=== PATIENT | male | born 1985 | race Caucasian/White ===

== ENCOUNTER 2023-04-13 04:04 | Emergency (ER) | payer SELFPAY ==
[~2023-04-13] VITALS: Ht 190.5 cm; Wt 107.0 kg
[~2023-04-13 04:04] MED LIST: LISI-711
[2023-04-13 04:37] LABS: Basophils # (auto) 0.1 10 ^3/uL (0-0.2); Basophils % (auto) 0.7 % (0.0-2.0); Eosinophils # (auto) 0.2 10 ^3/uL (0-0.8); Eosinophils % (auto) 2.4 % (0.0-7.0); Hematocrit 39.6 % (41.0-53.0); Hemoglobin 13.1 g/dL (13.5-17.5); Lymphocytes # (auto) 2.3 10 ^3/uL (0.4-5.4); Lymphocytes % (auto) 23.6 % (10.0-50.0); Mean Corpuscular Hemoglobin 29.9 pg (28.0-32.0); Mean Corpuscular Volume 90.4 fL (80.0-100.0); Monocytes # (auto) 1.2 10 ^3/uL (0-1.3); Monocytes % (auto) 12.5 % (0.0-12.0); Neutrophils # (auto) 5.9 10 ^3/uL (1.6-8.6); Neutrophils % (auto) 60.8 % (37.0-80.0); Nucleated Red Blood Cells % 0.1 %; Red Blood Cells 4.39 10^6/uL (4.5-5.90); Red Cell Distribution Width 13.7 % (11.8-14.3); White Blood Cell 9.7 10^3/uL (4.4-10.8)
[2023-04-13 04:52] LABS: Alanine Aminotransferase 93 U/L (7-40); Alkaline Phosphatase 81 U/L (46-116); Anion Gap 5 (5-15); Aspartate Aminotransferase 32 U/L (13-40); BUN/Creatinine Ratio 11.1 (10.0-20.0); Bilirubin, Total 0.4 mg/dL (0.2-1.0); Blood Urea Nitrogen 10 mg/dL (9-23); Carbon Dioxide 28 mmol/L (20-30); Chloride 106 mmol/L (98-107); Glucose 99 mg/dL (74-106); Potassium 4.1 mmol/L (3.5-5.1); Sodium 139 mmol/L (136-145); Total Protein 6.5 g/dL (5.7-8.2)
[2023-04-13 05:00] VITALS: BP 108/66; PULSE 106; RESP 16; O2SAT 98
== END 2023-04-13 05:54 | disposition left against medical advice (07) ==
LOC: ER 04:04
DX: L03.116 Cellulitis of left lower limb (principal); L03.115 Cellulitis of right lower limb
CPT/HCPCS: 36415; 80053; 83605; 85025; 87040; 87077; 87186; 87205; 93005

== ENCOUNTER 2024-03-14 10:38 | Inpatient (IN) | payer MEDICAID, OTHER ==
[~2024-03-14] VITALS: Ht 190.5 cm; Wt 92.0 kg
[2024-03-14 11:11] LABS: Basophils # (auto) 0 10 ^3/uL (0-0.2); Basophils % (auto) 0.4 % (0.0-2.0); Eosinophils # (auto) 0.1 10 ^3/uL (0-0.8); Eosinophils % (auto) 1.6 % (0.0-7.0); Hematocrit 40.6 % (41.0-53.0); Hemoglobin 14.1 g/dL (13.5-17.5); Lymphocytes # (auto) 2.5 10 ^3/uL (0.4-5.4); Lymphocytes % (auto) 27.1 % (10.0-50.0); Mean Corpuscular Hemoglobin 31.1 pg (28.0-32.0); Mean Corpuscular Hgb Conc. 34.7 g/dL (32.0-36.0); Mean Corpuscular Volume 89.7 fL (80.0-100.0); Monocytes % (auto) 10.5 % (0.0-12.0); Neutrophils # (auto) 5.6 10 ^3/uL (1.6-8.6); Neutrophils % (auto) 60.4 % (37.0-80.0); Platelet Count (auto) 304 10^3/uL (140-450); Red Blood Cells 4.53 10^6/uL (4.5-5.90); Red Cell Distribution Width 14.3 % (11.8-14.3); White Blood Cell 9.3 10^3/uL (4.4-10.8)
[2024-03-14 11:28] LABS: Alanine Aminotransferase 20 U/L (7-40); Albumin 4.2 g/dL (3.2-4.8); Alkaline Phosphatase 52 U/L (46-116); Anion Gap 3 (5-15); Aspartate Aminotransferase 10 U/L (13-40); BUN/Creatinine Ratio 22.4 (10.0-20.0); Bilirubin, Total 0.5 mg/dL (0.2-1.0); Blood Urea Nitrogen 17 mg/dL (9-23); Calcium 9.5 mg/dL (8.7-10.4); Carbon Dioxide 27 mmol/L (20-30); Chloride 108 mmol/L (98-107); Glucose 83 mg/dL (74-106); Potassium 4.1 mmol/L (3.5-5.1); Sodium 138 mmol/L (136-145); Total Protein 6.7 g/dL (5.7-8.2)
[2024-03-14] MEDS ORDERED: ACETAMINOPHEN 325 MG TAB PO PRN (16:15)
[2024-03-14] MEDS ORDERED: ONDANSETRON HCL 4 MG/2 ML VIAL IV PRN (16:15)
[2024-03-14] MEDS ORDERED: NITROGLYCERIN 0.4 MG SL TAB SL PRN ×2 (16:15)
[2024-03-14] MEDS: ENOXAPARIN SOD 100 MG/1 ML SYRINGE SC SCH (20:43)
[2024-03-14 21:22] VITALS: BP 101/59; PULSE 62; RESP 17; TEMP 98.5; O2SAT 98
[2024-03-14 21:58] VITALS: BP 101/59; PULSE 62; RESP 17; TEMP 98.5; O2SAT 98
[2024-03-14] MEDS: ATORVASTATIN 20 MG TAB PO SCH (22:22)
[2024-03-15 00:46] LABS: INR 1.09 (0.9-1.15); Prothrombin Time 11.5 sec (9.3-11.8)
[2024-03-15] MEDS ORDERED: TRAZ-228 PO (02:24)
[2024-03-15] MEDS ORDERED: ARIP20TA4 PO (02:24)
[2024-03-15 05:00] VITALS: BP 99/58; PULSE 72; RESP 18; TEMP 98.2; O2SAT 96
[2024-03-15 06:33] LABS: Basophils # (auto) 0 10 ^3/uL (0-0.2); Eosinophils # (auto) 0.1 10 ^3/uL (0-0.8); Lymphocytes # (auto) 2.3 10 ^3/uL (0.4-5.4); Nucleated Red Blood Cells % 0.1 %
[2024-03-15 06:36] LABS: Basophils % (auto) 0.6 % (0.0-2.0); Eosinophils % (auto) 1.4 % (0.0-7.0); Hematocrit 39.7 % (41.0-53.0); Hemoglobin 13.7 g/dL (13.5-17.5); Lymphocytes % (auto) 30.8 % (10.0-50.0); Mean Corpuscular Hemoglobin 31.2 pg (28.0-32.0); Mean Corpuscular Hgb Conc. 34.5 g/dL (32.0-36.0); Mean Corpuscular Volume 90.3 fL (80.0-100.0); Monocytes # (auto) 0.8 10 ^3/uL (0-1.3); Monocytes % (auto) 11.2 % (0.0-12.0); Neutrophils # (auto) 4.3 10 ^3/uL (1.6-8.6); Platelet Count (auto) 298 10^3/uL (140-450); White Blood Cell 7.6 10^3/uL (4.4-10.8)
[2024-03-15 06:51] LABS: Alanine Aminotransferase 19 U/L (7-40); Albumin 3.9 g/dL (3.2-4.8); Alkaline Phosphatase 49 U/L (46-116); Anion Gap 2 (5-15); Aspartate Aminotransferase 8 U/L (13-40); Blood Urea Nitrogen 12 mg/dL (9-23); Calcium 9.5 mg/dL (8.7-10.4); Carbon Dioxide 28 mmol/L (20-30); Chloride 110 mmol/L (98-107); Cholesterol 117 mg/dL (< 200); Glucose 87 mg/dL (74-106); HDL Cholesterol 36 mg/dL (40-59); LDL Cholesterol 69 mg/dL (< 100); Sodium 140 mmol/L (136-145); Triglycerides 51 mg/dL (< 150)
[2024-03-15 06:52] LABS: Bilirubin, Total 0.9 mg/dL (0.2-1.0); Total Protein 6.2 g/dL (5.7-8.2)
[2024-03-15 08:00] VITALS: PULSE 62; PULSE 65; RESP 20; O2SAT 97
[2024-03-15 08:07] LABS: Magnesium 2.2 mg/dL (1.6-2.6)
[2024-03-15 08:09] LABS: Phosphorus 3.1 mg/dL (2.4-5.1)
[2024-03-15 09:00] VITALS: BP 105/47; PULSE 62; RESP 20; TEMP 97.9; O2SAT 97
[2024-03-15] MEDS ORDERED: IOHEXOL 350 MG/ML 100ML IJ ONE (10:06)
[2024-03-15] MEDS: ASPirin 81 mg TAB PO SCH (10:11)
[2024-03-15] MEDS: DOCUSATE SOD 100 MG CAP PO SCH (10:11)
[2024-03-15 12:48] LABS: Free T3 3.17 pg/mL (2.3-4.2)
[2024-03-21 12:06] LABS: Vitamin D 25-Hydroxy 31 ng/mL (.); Vitamin D-2 25-Hydroxy <1.0 ng/mL (.); Vitamin D-3 25-Hydroxy 30 ng/mL (.)
== END 2024-03-15 14:15 | disposition left against medical advice (07) | DRG 206 ==
LOC: EEVIPCON 10:38 → EDBD 10:38 → ER 10:38 → TELE 16:10 → TELE-CENTR 16:11
PROVIDERS: ADMIT Internal Medicine Pulmonary Disease; ATTEND Internal Medicine
DX: M94.0 Chondrocostal junction syndrome [Tietze] (principal); I37.0 Nonrheumatic pulmonary valve stenosis; Z53.29 Procedure and treatment not carried out because of patient's decision for other reasons; Q99.2 Fragile X chromosome; Z83.3 Family history of diabetes mellitus; Z80.8 Family history of malignant neoplasm of other organs or systems
CPT/HCPCS: 36415; 71045; 71275; 80053; 80061; 82306; 82607; 83036; 83690; 83735; 83880; 84100; 84439; 84443; 84481; 84484; 85025; 85379; 85610; 87081; 93005; 93306; 96372; G0378